=== PATIENT | female | born 1975 | race Caucasian/White ===

== ENCOUNTER 2024-03-25 13:36 | Emergency (ER) | payer MEDICAID, SELFPAY ==
[2024-03-25 13:56] VITALS: BP 147/90; PULSE 109; TEMP 36.8; O2SAT 98; BMI 28.3
--- NOTE | 2024-03-25 14:00 | ECG_ITS ---
Troppin Test Date: 2024-03-25 Pat Name: Radha Luis Department: Room: Gender: Female It Administrator: : [id number] Requested By: Alayna Cali Order Number: [id number] Don MD: EFRA CRAWFORD Measurements Intervals Apollo Rate: 100 P: 20 MI: 127 QRS: 53 QRSD: 91 T: 73 QT: 349 QTc: 450 Interpretive Statements SINUS TACHYCARDIA POSSIBLE ANTERIOR MYOCARDIAL INFARCTION , PROBABLY OLD [30 ms Q WAVE IN V3/V4, OR R < 0.2 mV IN V4] ABNORMAL RHYTHM ECG No previous ECG available for comparison Electronically Signed On 03-27-2024 21:02:38 CDT by EFRA CRAWFORD [email or web address]
--- NOTE | 2024-03-25 14:21 | ED_ITS ---
HPI - Abdominal Pain 2 General: Chief Complaint: Abdominal Pain Stated Complaint: Nausea, Diarhea, severe heart burn Time Seen by Provider: 03/25/24 14:18 Source: patient Mode of arrival: ambulatory Limitations: no limitations History of Present Illness: 48-year-old female states that over the last 4 days she been having some reflux and abdominal cramping along with diarrhea states her reflux is resolved but she still having some diarrhea its improved as well has diffuse cramping she rates a 5 out of 10 patient denies any fever denies any worsening improving factors Associated Symptoms: Reports diarrhea; Denies chills, fever(s), nausea and vomiting Related Data Previous Rx's Medication Instructions Recorded ciprofloxacin HCl 500 mg tablet 500 mg PO BID #14 tabs 03/25/24 (Cipro) metronidazole 500 mg tablet 500 mg PO Q8H 7 days #21 tabs 03/25/24 pantoprazole 40 mg tablet,delayed 40 mg PO DAILY #60 tabs 03/25/24 release (Protonix) Allergies Allergy/AdvReac Type Severity Reaction Status Date / Time erythromycin base Allergy Unknown Verified 03/25/24 14:02 meperidine [From Demerol] Allergy ALGY-Difficulty Verified 03/25/24 14:02 Breathing nifedipine [From Procardia] Allergy Unknown Verified 03/25/24 14:02 Penicillins Allergy Unknown Verified 03/25/24 14:02 Sulfa (Sulfonamide Allergy Unknown Verified 03/25/24 14:02 Antibiotics) Review of Systems 2 Const: Denies: fever(s), chills, body aches or change in appetite ENMT: Denies: throat pain or dental pain Card: Denies: chest pain Resp: Denies: dyspnea GI: Reports: abdominal pain and diarrhea; Denies: nausea or vomiting Musc: Denies: neck pain or back pain Skin/Breast: Denies: rash Neuro: Denies: headache(s) Physical Exam 2 Const: COMMON NORMALS: no acute distress, patient oriented x3 and healthy appearing HENMT: COMMON NORMALS: normocephalic and atraumatic HEAD & SCALP: n ormocephalic and atraumatic Eye: COMMON NORMALS: EOMs intact bilaterally and conjunctivae normal C ONJUNCTIVA: Yes conjunctivae normal Neck/C-Spine: COMMON NORMALS: full ROM and supple Chest: COMMONS NORMALS: normal inspection of the chest Resp: COMMON NORMALS: normal respiratory effort, No retractions, No use of accessory muscles and clear to auscultation bilaterally AUSCULTATION: clear to auscultation bilaterally Cardio: COMMON NORMALS: regular rate, regular rhythm and No murmurs present (Cardio) RATE: regular rate RHYTHM: regular rhythm GI: COMMON NORMALS: Normal to inspection, nondistended, normoactive bowel sounds present, Soft to palpation, non-tender and no masses PALPATION: Yes Soft to palpation Extremity: COMMON NORMALS: normal to inspection and full ROM Neuro: COMMON NORMALS: patient oriented x3, moves all extremities and no focal motor deficits Psych: COMMON NORMALS: mental status grossly normal, Normal thought process present and cooperative THOUGHT PROCESS: Normal thought process present Skin: COMMON NORMALS: no rashes or lesions noted and no wounds GENERAL SKIN EXAM: no rashes or lesions noted Course 2 Vital Signs: Vital signs: Vital Signs Temperature 98.3 F 03/25/24 13:56 Pulse Rate 109 H 03/25/24 13:56 Blood Pressure 147/90 03/25/24 13:56 Pulse Oximetry 98 03/25/24 13:56 Oxygen Delivery Me thod Room Air 03/25/24 13:56 MDM - Abdominal Pain Medical Decision Making Patient presents here with abdominal pain along with diarrhea CT does show colitis we will start her on Cipro Flagyl we will get her follow-up with surgery. He also had some reflux-like symptoms we will start her on Protonix. Abdominal exam here is benign white count is normal she is to return if worsening. Medical Records I reviewed the patient's medical records. Lab Data I reviewed the patient's lab results. 03/25/24 14:28 03/25/24 14:28 Labs/Radiology: Radiology Impressions Abdomen/Pelvis CT 03/25/24 14:50 IMPRESSION: 1. Nonspecific findings involving the cecum with mild pericecal lymphadenopathy. Findings may be inflammatory in nature secondary to a mild segmental colitis with tibial follow-up to document resolution and exclude other more sinister pathology. 2. Mild splenomegaly. 3. Small nonobstructing calculi both kidneys. Laboratory Results WBC 12.32 10^3/uL (3.29-11.43) H 03/25/24 14:28 RBC 5.45 10^6/uL (3.85-5.65) 03/25/24 14:28 Hgb 15.30 g/dL (11.27-16.99) 03/25/24 14: Hct 46.0 % (36-47) 03/25/24 14: MCV 84.4 fl (85-98) L 03/25/24 14: MCH 28.1 pg (27-33) 03/25/24 14: MCHC 33.3 g/dL (30-55) 03/25/24 14: RDW 13.2 % (12.1-15.1) 03/25/24 14: Plt Count 243 10^3/cmm (157-399) 03/25/24 14: MPV 10.3 fL (7.4-10.4) 03/25/24 14: Neut % (Auto) 71.0 % 03/25/24 14: Lymph % (Auto) 16.6 % 03/25/24 14: Swain % (Auto) 6.7 % 03/25/24 14: Eos % (Auto) 5.0 % 03/25/24 14: Baso % (Auto) 0.5 % 03/25/24 14: Neut # (Auto) 8.76 10^3/uL (1.8-7.7) H 03/25/24 14: Lymph # (Auto) 2.0 10^3/uL (0.8-4.8) 03/25/24 14: Swain # (Auto) 0.8 10^3/uL (0.2-0.9) 03/25/24: Eos # (Auto) 0.6 10^3/uL (0.0-0.8) 03/25/24 14: Baso # (Auto) 0.1 10^3/uL (0.0-0.1) 03/25/24 14: Nucleated RBC % (auto) 0 % 03/25/24: Nucleated RBCs # 0.0 /100WBC 03/25/24 14: Sodium 135 mmol/L (136-145) L 03/25/24 14:28 Potassium 3.9 mmol/L (3.5-5.1) 03/25/24 14: Chloride 102 mmol/L (98-107) 03/25/24 14:28 Carbon Dioxide 21 mmol/L (22-29) L 03/25/24 14:28 Anion Gap 15.9 (5-19) 03/25/24 14:28 BUN 7 mg/dL (6-20) 03/25/24 14:28 Creatinine 0.5 mg/dL (0.5-0.9) 03/25/24 14:28 GFR Calculation 132.8 mL/min (90-130) H 03/25/24 14:28 Glucose 106 mg/dL (65-115) 03/25/24 14:28 Calculated Osmolality 278 mOsm/kg (285-295) L 03/25/24 14:28 Lactic Acid 1.0 mmol/L (0.5-2.2) 03/25/24 14:28 Calcium 9.4 mg/dL (8.5-10.5) 03/25/24 14:28 Total Bilirubin 0.3 mg/dL (0.15-1.2) 03/25/24 14:28 AST 11 U/L (0-32) 03/25/24 14:28 ALT 15 U/L (0-33) 03/25/24 14:28 Alkaline Phosphatase 72 U/L (35-105) 03/25/24 14:28 Troponin T Baseline < 6 ng/L (0-10) 03/25/24 14:28 Total Protein 7.1 g/dL (6.6-8.7) 03/25/24 14:28 Albumin 4.4 g/dL (3.5-5.2) 03/25/24 14:28 Globulin 2.7 g/dL (1.3-4.6) 03/25/24 14:28 Lipase 17 U/L (13-60) 03/25/24 14:28 HCG, Qual Negative (Negative) 03/25/24 14:28 Urine Color Yellow (Yellow) 03/25/24 14:55 Urine Appearance Clear (CLEAR) 03/25/24 14:55 Urine pH 5.5 (5-7) 03/25/24 14:55 Ur Specific [place] 1.010 (1.005-1.030) 03/25/24 14:55 Urine Protein Negative (Negative) 03/25/24 14:55 Urine Glucose (UA) Negative (Normal) 03/25/24 14:55 Urine Ketones Trace (Negative) 03/25/24 14:55 Urine Blood 2+ (Negative) A 03/25/24 14:55 Urine Nitrate Negative (Negative) 03/25/24 14:55 Urine Bilirubin Negative (Negative) 03/25/24 14:55 Urine Urobilinogen 0.2 mg/dL (Negative) 03/25/24 14:55 Ur Leukocyte Esterase Negative (Negative) 03/25/24 14:55 Urine RBC 6-10 /hpf (0-2) 03/25/24 14:55 Urine WBC 0-5 /hpf (0-5) 03/25/24 14:55 Ur Squamous Epith Cells 0-5 /hpf (0-5) 03/25/24 14:55 Amorphous Sediment Not Reportable 03/25/24 14:55 Urine Bacteria None seen /hpf (NONE) 03/25/24 14:55 Hyaline Casts 0.40 /lpf 03/25/24 14:55 Coronavirus (PCR) Negative (Negative) 03/25/24 14:28 Influenza A (PCR) Negative (Negative) 03/25/24 14:28 Influenza Type B (PCR) Negative (Negative) 03/25/24 14:28 RSV (PCR) Negative (Negative) 03/25/24 14:28 All radiology interpretation(s) finalized by discharge Discharge Plan Discharge Patient Disposition: Home Clinical Impression: Colitis Condition: Stable Prescriptions: New metronidazole 500 mg tablet 500 mg PO Q8H 7 Days Qty: 21 0RF ciprofloxacin HCl [Cipro] 500 mg tablet 500 mg PO BID Qty: 14 0RF pantoprazole [Protonix] 40 mg tablet,delayed release (DR/EC) 40 mg PO DAILY Qty: 60 0RF Discharge Orders: Discharge ED (Routine); Ordered 03/25/24 Ordered By: Brenda Chaudhry Referrals: Kishor Carrington DO [Physician] - 4-7 days Discharge Diet: Advance as tolerated Discharge Activity: Resume usual activity Patient Instructions: Colitis (ED) Coding Level of Care Code ED Exhibit Builder for Johnathon Gutierrez
[2024-03-25 14:30] VITALS: BP 159/110; PULSE 95; RESP 18; O2SAT 98
[2024-03-25 14:39] LABS: Basophils # 0.1 10^3/uL (0.0-0.1); Basophils % 0.5 %; Eosinophils # 0.6 10^3/uL (0.0-0.8); Lymphocytes % 16.6 %; Mean Corpuscular HGB Conc 33.3 g/dL (30-55); Mean Corpuscular Hemoglobin 28.1 pg (27-33); Mean Corpuscular Volume 84.4 fl (85-98); Mean Platelet Volume 10.3 fL (7.4-10.4); Monocytes # 0.8 10^3/uL (0.2-0.9); Monocytes % 6.7 %; Neutrophils # 8.76 10^3/uL (1.8-7.7); Nucleated Red Blood Cells % 0 %; Platelet Count 243 10^3/cmm (157-399); Red Blood Count 5.45 10^6/uL (3.85-5.65); Red Cell Distribution Width 13.2 % (12.1-15.1); White Blood Count 12.32 10^3/uL (3.29-11.43)
[2024-03-25 14:47] LABS: HCG, Serum Qual Negative (Negative)
--- NOTE | 2024-03-25 14:50 | CTR_ITS ---
PROCEDURE INFORMATION: Exam: CT Abdomen And Pelvis Without Contrast Exam date and time: 03/25/2024 3:10 PM Age: 48 years old Clinical indication: Abdominal pain; Prior surgery; Surgery date: 6+ months; Surgery type: C-sections, gallbladder; Additional info: Abd pain TECHNIQUE: Imaging protocol: Computed tomography of the abdomen and pelvis without contrast. Radiation optimization: All CT scans at this facility use at least one of these dose optimization techniques: automated exposure control; mA and/or kV adjustment per patient size (includes targeted exams where dose is matched to clinical indication); or iterative reconstruction. COMPARISON: No relevant prior studies available. RADIATION DOSE METRICS: Total DLP (mGy-cm): 812.29 FINDINGS: Lungs: Lung bases are clear. Liver: Liver is unremarkable. No mass or enlargement detected. Gallbladder and biliary ducts: Gallbladder has been removed. Bile ducts are not appreciably dilated. Pancreas: Unremarkable. Main pancreatic duct is not significantly dilated. Spleen: Spleen is mildly enlarged. Adrenal glands: Normal. No mass. Kidneys and ureters: Small nonobstructing calculi both kidneys. No ureteral stones or hydronephrosis. Stomach and bowel: Colon is collapsed limiting assessment. There is subtle pericolonic fat stranding surrounding the cecum raising possibility of mild segmental colitis. There are some adjacent borderline enlarged pericolonic lymph nodes may be reactive in nature but needs follow-up and clarification. Appendix: No evidence of acute appendicitis. Intraperitoneal space: Unremarkable. No free air. No significant fluid collection. Vasculature: Unremarkable. No abdominal aortic aneurysm. Lymph nodes: See Stomach and bowel finding. Urinary bladder: Unremarkable as visualized. Reproductive: Unremarkable as visualized. Bones/joints: Unremarkable. No acute fracture. Soft tissues: Lower abdominal wall hernia mesh in place. CT/CT abdomen pelvis wo con [id number] IMPRESSION: 1. Nonspecific findings involving the cecum with mild pericecal lymphadenopathy. Findings may be inflammatory in nature secondary to a mild segmental colitis with tibial follow-up to document resolution and exclude other more sinister pathology. 2. Mild splenomegaly. 3. Small nonobstructing calculi both kidneys.
[2024-03-25 14:54] LABS: Alanine Aminotransferase 15 U/L (0-33); Albumin Level 4.4 g/dL (3.5-5.2); Alkaline Phosphatase 72 U/L (35-105); Anion Gap 15.9 (5-19); Aspartate Amino Transferase 11 U/L (0-32); Blood Urea Nitrogen 7 mg/dL (6-20); Calcium 9.4 mg/dL (8.5-10.5); Carbon Dioxide 21 mmol/L (22-29); Chloride 102 mmol/L (98-107); Creatinine Clr Calc Pharmacy 134.2098; Globulin 2.7 g/dL (1.3-4.6); Glomerular Filtration Rate 132.8 mL/min (90-130); Glucose 106 mg/dL (65-115); Lipase 17 U/L (13-60); Osmolality Calculated 278 mOsm/kg (285-295); Potassium 3.9 mmol/L (3.5-5.1); Sodium 135 mmol/L (136-145); Total Bilirubin 0.3 mg/dL (0.15-1.2); Total Protein 7.1 g/dL (6.6-8.7); Troponin(5th) Baseline < 6 ng/L (0-10)
[2024-03-25 15:00] VITALS: BP 132/86; PULSE 92; RESP 16; O2SAT 97
--- NOTE | 2024-03-25 15:02 | PC.NURSE ---
Patient refused zofran and lomotil. States that she is not nauseous and the diarrhea and cramps have stopped.
[2024-03-25 15:08] LABS: Bilirubin Urine Negative (Negative); Blood Urine 2+ (Negative); Glucose Urine UA Negative (Normal); Ketones Urine Trace (Negative); Leukocyte Esterase Urine Negative (Negative); Nitrate Urine Negative (Negative); Protein Urine Negative (Negative); Urine Appearance Clear (CLEAR); Urine Color Yellow (Yellow); Urobilinogen Urine 0.2 mg/dL (Negative); pH Urine 5.5 (5-7)
[2024-03-25 15:13] LABS: Bacteria Urine None Seen /hpf; Squamous Epithelial Cell Urine 0-5 /hpf (0-5); WBC Urine 0-5 /hpf (0-5)
[2024-03-25 15:15] VITALS: BP 105/74; PULSE 84; RESP 18; O2SAT 96
[2024-03-25 15:19] LABS: Covid PCR NEGATIVE (Negative); Influenza A NEGATIVE (Negative); Influenza B NEGATIVE (Negative); Respiratory Syncytial Virus Ce NEGATIVE (Negative)
--- NOTE | 2024-03-25 15:30 | PC.NURSE ---
Patient post secondary professional light- States that her IV is bothering her arm and she wants it out right now. Educated pt on why she needs an IV line in the ER- pt tells me that she is an [employer] and doesn't care. Then tells me she asked for a pillow 2 hours ago and was given a rolled up sheet and that it is ridiculous. I apologized to patient and let her know that can try and locate a pillow for her but charge nurse brought what was available. Pt upset by this. Attempted to place vitals equipment on patient and she refused telling me that she is not getting her bp taken again. Education provided on why vitals are monitored. Pt c/o the Doctor not telling her what her test results are. Informed pt that her CT scan results have not come back and that provider will talk with her when he knows what the results are. Provider made aware and IV cath removed per pt request.
[2024-03-25 17:14] VITALS: RESP 18
--- NOTE | 2024-03-26 08:08 | DCPLANNER ---
messaged gen surg for er f/u
== END 2024-03-25 17:16 | disposition home or self-care (01) ==
PROVIDERS: Emergency Medicine; Emergency Provider Emergency Medicine
DX: K52.9 Noninfective gastroenteritis and colitis, unspecified (principal); Z11.52 Encounter for screening for COVID-19
CPT/HCPCS: 0241U; 74176; 80053; 81001; 83605; 83690; 84484; 84703; 85025; 93005; 99284

== ENCOUNTER 2025-03-28 08:37 | Outpatient (CLI) | payer MEDICAID, SELFPAY ==
--- NOTE | 2025-03-28 08:45 | USR_ITS ---
PROCEDURE INFORMATION: Exam: US Pelvis, Complete, Non-Obstetric Exam date and time: 03/28/2025 8:58 AM Age: 49 years old Clinical indication: Abnormal findings; Abnormal lab test; Other; Unspecified abnormal cytological; Additional info: R87.619 - unspecified abnormal cytological findings in sp TECHNIQUE: Imaging protocol: Transabdominal pelvic nonobstetric ultrasound. Complete exam. Real time ultrasound with image documentation. COMPARISON: CT abdomen pelvis wo con [id number] 03/25/2024 3:10 PM FINDINGS: Uterus: Heterogenous echogenicity of the uterus. Endometrial thickness is 19 mm. There is a hypoechoic area noted in the cervix. This may represent a nabothian cysts. However indeterminate. Right ovary/adnexa: Ovary is normal. No mass. Normal blood flow. Left ovary/adnexa: Hypoechoic area in the left ovary which may reflect a hemorrhagic collapsed cyst. Intraperitoneal space: No intraperitoneal fluid. Urinary bladder: Normal. US/US pelvic complete* [id number] IMPRESSION: Hypoechoic area of the cervix. Consider follow up with direct visualization.
== END 2025-03-28 08:38 | disposition home or self-care (01) ==
PROVIDERS: PCP Family Medicine; Visit Provider Obstetrics & Gynecology
DX: R87.619 Unspecified abnormal cytological findings in specimens from cervix uteri (principal)
CPT/HCPCS: 76856